=== PATIENT | male | born 1955 | race Caucasian/White ===

== ENCOUNTER 2019-04-03 09:21 | Outpatient (REF) | payer MEDICARE, SELFPAY ==
[2019-04-03 13:14] LABS: Anion Gap 10.4 mmol/L (3-11); BUN 26 mg/dL (7-18); CO2 26.6 mmol/L (21.0-32.0); CREATININE 0.92 mg/dL (0.70-1.30); Calcium 9.7 mg/dL (8.5-10.1); Chloride 104 mmol/L (98-107); Glucose 253 mg/dL (70-100); Potassium 4.5 mmol/L (3.5-5.1); Sodium 141 mmol/L (136-145)
== END 2019-04-03 09:41 ==
LOC: NCHCN 09:21
PROVIDERS: PCP Internal Medicine; Visit Provider Internal Medicine
DX: I10 Essential (primary) hypertension (principal)
CPT/HCPCS: 80048

== ENCOUNTER 2020-03-28 14:58 | Outpatient (REF) | payer MEDICARE, SELFPAY ==
[2020-03-28 21:19] LABS: Anion Gap 8.8 mmol/L (3-11); BUN 20 mg/dL (7-18); CO2 28.2 mmol/L (21.0-32.0); CREATININE 0.99 mg/dL (0.70-1.30); Calcium 9.8 mg/dL (8.5-10.1); Chloride 102 mmol/L (98-107); Glucose 190 mg/dL (74-106); Potassium 4.1 mmol/L (3.5-5.1); Sodium 139 mmol/L (136-145)
== END 2020-03-28 15:18 ==
LOC: NCHCN 14:58
PROVIDERS: PCP Internal Medicine; Visit Provider Internal Medicine
DX: E11.65 Type 2 diabetes mellitus with hyperglycemia (principal); I10 Essential (primary) hypertension
CPT/HCPCS: 80048

== ENCOUNTER 2020-09-29 20:59 | Outpatient (REF) | payer MEDICARE, SELFPAY ==
[2020-10-02 21:26] LABS: COVID-19 RT-PCR Result NEGATIVE (Negative)
== END 2020-09-29 21:19 ==
LOC: NCHCN 20:59
PROVIDERS: PCP Internal Medicine; Visit Provider Internal Medicine
DX: Z20.828 Contact with and (suspected) exposure to other viral communicable diseases (principal)
CPT/HCPCS: U0003

== ENCOUNTER 2021-04-21 11:23 | Outpatient (REF) | payer MEDICARE, SELFPAY ==
[2021-04-21 14:30] LABS: Anion Gap 12.2 mmol/L (3-11); BUN 16 mg/dL (7-18); CO2 24.8 mmol/L (21.0-32.0); CREATININE 0.9 mg/dL (0.70-1.30); Calcium 9.3 mg/dL (8.5-10.1); Chloride 105 mmol/L (98-107); Glucose 205 mg/dL (74-106); Potassium 4.3 mmol/L (3.5-5.1); Sodium 142 mmol/L (136-145)
== END 2021-04-21 11:24 | disposition home or self-care (01) ==
LOC: NCHCN 11:23
PROVIDERS: PCP Internal Medicine; Visit Provider Internal Medicine
DX: I10 Essential (primary) hypertension (principal)
CPT/HCPCS: 80048

== ENCOUNTER 2022-04-26 17:19 | Outpatient (REF) | payer MEDICARE, SELFPAY ==
[2022-04-26 15:01] LABS: Abs Immature Grans 0.08 10^3/uL (0.0-0.06); Absolute Basophil Count 0.04 10^3/uL (0.0-0.2); Absolute Eosinophil Count 0.27 10^3/uL (0.0-0.7); Absolute Monocyte Count 0.41 10^3/uL (0.1-0.8); Basophils % 0.6; Eosinophils % 4.2; HCT 47.5 % (40.0-50.0); HGB 15.4 g/dL (13.5-17.5); Immature Grans % 1.2; Lymphocytes % 35.4; MCH 29.9 pg (27.0-33.0); MCHC 32.4 % (32.0-36.0); MCV 92 fL (80-95); MPV 12.8 fL (8.0-11.0); Monocytes % 6.3; Neutrophils % 52.3; Platelet Count 181 10^3/uL (130-400); RBC 5.15 10^6/uL (4.36-5.78); RDW 13.2 % (11.8-14.1); RDW-SD 44.7 fL
[2022-04-26 15:25] LABS: ALT 56 U/L (16-63); AST 31 U/L (15-37); Albumin 4.2 g/dL (3.4-5.0); Alkaline Phosphatase 89 U/L (46-116); Anion Gap 10.9 mmol/L (3-11); BUN 21 mg/dL (7-18); Bilirubin, Total 0.6 mg/dL (0.2-1.0); CO2 29.1 mmol/L (21.0-32.0); CREATININE 0.9 mg/dL (0.70-1.30); Calcium 8.9 mg/dL (8.5-10.1); Chloride 101 mmol/L (98-107); Glucose 105 mg/dL (74-106); Potassium 4.1 mmol/L (3.5-5.1); Sodium 141 mmol/L (136-145); Total Protein 7.3 g/dL (6.4-8.2)
== END 2022-04-26 17:20 | disposition home or self-care (01) ==
LOC: NCHCN 17:19
PROVIDERS: PCP Internal Medicine; Visit Provider Family Medicine
DX: I10 Essential (primary) hypertension (principal); E11.65 Type 2 diabetes mellitus with hyperglycemia; L98.8 Other specified disorders of the skin and subcutaneous tissue
CPT/HCPCS: 80053; 85025

== ENCOUNTER 2023-05-26 11:16 | Outpatient (REF) | payer MEDICARE, SELFPAY ==
[2023-05-26 15:55] LABS: HGB 15.9 g/dL (13.5-17.5); MCH 30.2 pg (27.0-33.0); MCHC 33.8 % (32.0-36.0); MCV 89 fL (80-95); Platelet Count 183 10^3/uL (130-400); RBC 5.27 10^6/uL (4.36-5.78); RDW 13.2 % (11.8-14.1); RDW-SD 43.2 fL; WBC 5.91 10^3/uL (4.4-10.8)
[2023-05-26 17:12] LABS: ALT 48 U/L (16-63); AST 32 U/L (15-37); Albumin 4.2 g/dL (3.4-5.0); Alkaline Phosphatase 87 U/L (46-116); Anion Gap 12.4 mmol/L (3-11); BUN 19 mg/dL (7-18); Bilirubin, Total 0.5 mg/dL (0.2-1.0); CO2 24.6 mmol/L (21.0-32.0); CREATININE 0.8 mg/dL (0.70-1.30); Calcium 9.6 mg/dL (8.5-10.1); Chloride 102 mmol/L (98-107); Estimated GFR 98.21 (mL/min/1.73m2); Glucose 102 mg/dL (74-106); Potassium 3.9 mmol/L (3.5-5.1); Sodium 139 mmol/L (136-145); Total Protein 7.3 g/dL (6.4-8.2)
[2023-05-26 22:56] LABS: PSA, Screening 0.4 ng/mL (<=4.5)
== END 2023-05-26 11:17 | disposition home or self-care (01) ==
LOC: NCHCN 11:16
PROVIDERS: PCP Internal Medicine; Visit Provider Family Medicine
DX: E11.9 Type 2 diabetes mellitus without complications (principal); I10 Essential (primary) hypertension; E78.2 Mixed hyperlipidemia; Z12.5 Encounter for screening for malignant neoplasm of prostate
CPT/HCPCS: 80053; 84153; 85027

== ENCOUNTER 2023-11-22 11:39 | Outpatient (REF) | payer MEDICARE, SELFPAY ==
[2023-11-22 16:11] LABS: Hemoglobin A1C 7.5 % (<5.7)
== END 2023-11-22 11:40 | disposition home or self-care (01) ==
LOC: NCHCN 11:39
PROVIDERS: PCP Internal Medicine; Visit Provider Family Medicine
DX: E11.9 Type 2 diabetes mellitus without complications (principal)
CPT/HCPCS: 83036

== ENCOUNTER 2024-05-30 12:41 | Outpatient (REF) | payer MEDICARE, SELFPAY ==
--- OUTSIDE RECORDS SUMMARY | 2024-05-30 12:43 | XMS_ITS | Encounter Summary ---
Author Organization [facility] Address [address] [place] [address] Care Team Providers Care Chief Informatics Officer Name Role Phone Ralph Gonzalez MD Primary Care Provider [phone] Encounter Details Date Type Department Care Team (Late st Contact Info) Description 05/26/2023 Lab Requisition [facility] Pathology & Laboratory Medicine - [address] [phone] Outr Resulting Lab, Provider Social History Tobacco Use Types Packs/Day Years Used Date Smoking Tobacco: Never Assessed Sex and Gender Information Value Date Recorded Sex Assigned at Not on file Gender Identity Not on file Sexual Orientation Not on file documented as of this encounter Plan of Treatment Not on file documented as of this encounter Procedures Procedure Name Priority Date/Time Associated Diagnosis Comments PSA TOTAL, DIAGNOSTIC Routine 05/26/2023 10:30 EDT documented in this encounter Results * PSA TOTAL, DIAGNOSTIC (05/26/2023 10:30 EDT) PSA 0.4 <=4.5 ng/mL 05/26/2023 22:52 EDT [facility] Blood VENOUS BLOOD / Unknown 05/26/2023 10:30 EDT 05/26/2023 21:26 EDT Narrative [facility] - 05/26/2023 22:52 EDT NOTE: Serum PSA concentration should not be interpreted as absolute evidence for the presence or absence of malignant disease. Assayed on Siemens ADVIA Centaur XPT using chemiluminescent technology.??Values obtained by using different assay methods cannot be used interchangeably. Provider Outr Resulting Lab CHEMISTRY & BLOOD GAS ORDERABLES [facility] [address] [place] [address] documented in this encounter Visit Diagnoses Not on filedocumented in this encounter Care Teams Chief Informatics Officer Relationship Specialty Start Date End Date Ralph Gonzalez MD [address] [place], [place] [phone] PCP - General 08/23/15 documented as of this encounter
--- OUTSIDE RECORDS SUMMARY | 2024-05-30 12:43 | XMS_ITS | Encounter Summary ---
Author Organization [facility] Address [address] [place] [address] Care Team Providers Care Cold Rolling Machine Setter Name Role Phone Ralph Gonzalez MD Primary Care Provider Encounter Details Date Type Department Care Team (Latest Contact Info) Description 10/28/2015 10:34 EST - 10/28/2015 23:59 EST Hospital Encounter [facility] - [address] [address] Unknown, Provider, Discharge Disposition: Home or Self Care Social History Tobacco Use Types Packs/Day Years Used Date Smoking Tobacco: Never Assessed Sex and Gender Information Value Date Recorded Sex Assigned at Not on file Gender Identity Not on file Sexual Orientation Not on file documented as of this encounter Discharge Disposition Disposition Code Departure Means Destination Home or Self [facility] documented in this encounter Plan of Treatment Not on file documented as of this encounter Visit Diagnoses Not on filedocumented in this encounter Care Teams Cold Rolling Machine Setter Relationship Specialty Start Date End Date Ralph Gonzalez MD [address] [place] [address] PCP - General 08/23/15 documented as of this encounter
--- OUTSIDE RECORDS SUMMARY | 2024-05-30 12:43 | XMS_ITS | Encounter Summary ---
Author Organization [facility] Address [address] [place] [address] Care Team Providers Care Photocomposing Machine Operator Name Role Phone Ralph Gonzalez MD Primary Care Provider [phone] Encounter Details Date Type Department Care Team (Late st Contact Info) Description 10/28/2015 Results Only [facility] [phone] Devaughn Theodore, [address] [facility] [address] [place] [phone] Social History Tobacco Use Types Packs/Day Years Used Date Smoking Tobacco: Never Assessed Sex and Gender Information Value Date Recorded Sex Assigned at Not on file Gender Identity Not on file Sexual Orientation Not on file documented as of this encounter Plan of Treatment Not on file documented as of this encounter Procedures Procedure Name Priority Date/Time Associated Diagnosis Comments SURGICAL PATHOLOGY Routine 10/28/2015 10 :07 EST documented in this encounter Results * SURGICAL PATHOLOGY (10/28/2015 10:07 EST) Pathology Report: SURGICAL PATHOLOGY REPORT Reports generated via electronic interface contain original data; however they are lacking the format of the original report. Caution should be taken when reading/interpret ing unformatted reports. Name: ? WILLIE GILMAN ? Accession #: ? [id number] ? : ? 1955 (Age: 60) ??M ? Collect Date: ? 10/28/2015 ? Location: ? [facility] ? Receive Date: ? 10/29/2015 ? Provider: DVEAUGHN THEODORE DO Copy to: RALPH GONZALEZ MD ? Final Pathologic Diagnosis: A. COLON, ASCENDING, BIOPSY: - ??Colonic mucosa with no specific pathologic features. B. COLON, TRANSVERSE, BIOPSY: - ??Colonic mucosa with no specific pathologic features. C. COLON, SIGMOID, BIOPSY: - ??Colonic mucosa with no specific pathologic features. D. RECTUM, BIOPSY: - ??Colorectal mucosa with no specific pathologic features. Document reviewed and electronically signed by: SONALI ZUÑIGA MD Report ??Date: 10/31/2015 11:21 By the signature above, the attending physician certifies that he/she has personally conducted a gross and/or microscopic examination of the described specimens and rendered or confirmed the above diagnosis. Specimen(s) Received: A. ??Ascending colon bx B. ??Transverse colon bx C. ??Sigmoid colon bx D. ??Rectal bx Clinical History: Hx rectal cancer Gross Description: A. ?Received in formalin labelled with proper patient identification (initials L, N) and ascending colon bx are two pink-shaw tissues each measuring (0.4 x 0.3 x 0.2 cm). Entirely submitted in A1. B. ?Received in formalin labelled with proper patient identification (initials L, N) and transverse colon bx are two pink-shaw tissues (0.3 x 0.2 x 0.2 cm and 0.4 x 0.2 x 0.2 cm). Entirely submitted in B1. C. ?Received in formalin labelled with proper patient identification (initials L, N) and sigmoid colon bx are two pink-shaw tissues (0.2 x 0.2 x 0.2 cm and 0.5 x 0.3 x 0.2 cm). Entirely submitted in C1. D. ?Received in formalin labelled with proper patient identification (initials L, N) and rectal bx are two pink-shaw tissues (0.3 x 0.2 x 0.1 cm and 0.3 x 0.2 x 0.2 cm). Entirely submitted in D1. Cece Daley 10/29/2015 4:00 PM End of Report [facility] 10/28/2015 10:0 7 EST 10/29/2015 10:07 EST Devaughn Theodore DO PATHOLOGY ORDER DAVI [facility] [address] [place] [address] documented in this encounter Visit Diagnoses Not on filedocumented in this encounter Care Teams Photocomposing Machine Operator Relationship Specialty Start Date End Date Ralph Gonzalez MD [address] [place], [place] [phone] PCP - General 08/23/15 documented as of this encounter
--- OUTSIDE RECORDS SUMMARY | 2024-05-30 12:43 | XMS_ITS | Encounter Summary ---
Author Organization [facility] Address [address] [place] [address] Care Team Providers Care Automation Controls Expert Name Role Phone Ralph Gonzalez MD Primary Care Provider [phone] Encounter Details Date Type Department Care Team (Late st Contact Info) Description 09/30/2020 Lab Requisition [facility] Pathology & Laboratory Medicine - [address] [phone] Outr Resulting Lab, Provider Social History Tobacco [...] Procedure Name Priority Date/Time Associated Diagnosis Comments DO NOT ORDER STANDALONE - [facility] COVID TEST Today 09/29/2020 10:45 EST COVID-19 TESTING Routine 09/29/2020 10:4 5 EST documented in this encounter Results * DO NOT ORDER STANDALONE - [facility]OAD COVID TEST (09/29/2020 10:45 EST) COVID-19 rt-PCR Result NEGATIVE Negative 10/02/2020 19:09 EST [facility] Comment: 2019-novel Coronavirus (2019-nCoV) not detected by the qRT-PCR assay. Consider testing for other respiratory viruses or re-collecting for 2019-nCoV testing. Note: Optimum timing for peak viral levels during infections caused by 2019-nCoV have not been determined. Collection of multiple specimens from the same patient may be necessary to detect the virus. Limitations Positive results are indicative of active infection with SARS-CoV-2 but do not rule out bacterial infection or co-infection with other viruses. The agent detected may not be the definite cause of disease. In addition, detection of viral RNA may not indicate the presence of infectious virus or that SARS-CoV-2 is the causative agent for clinical symptoms. Negative results do not preclude SARS-CoV-2 infection and should not be used as the sole basis for patient management decisions. Negative results must be combined with clinical observations, patient history, and epidemiological information. False negative results may also occur if amplification inhibitors are present in the specimen or if inadequate numbers of organisms are present in the specimen. Optimum specimen types and timing for peak viral levels during infections caused by SARS-CoV-2 have not been fully determined. Collection of multiple specimens (types and time points) from the same patient may be necessary to detect the virus. The test was validated for use with upper respiratory specimens obtained via nasopharyngeal or oropharyngeal swabs in VTM, UTM, M4, M5, M6, saline, and MTM media. The performance of this test has not been established for other specimens. Specimens collected using other FDA recommended Specimen Collection Materials listed in the FDA COVID-19 [employer] communication (January 10, 2020) are processed with the caveat that they were not all validated for use with this test and the result must be interpreted in this context. Furthermore, a false negative results may occur if a specimen is improperly collected, transported or handled. If the virus mutates in the RT-PCR target region, SARS-CoV-2 may not be detected or may be detected less predictably. Inhibitors or other types of interference may produce a false negative result. An interference study evaluating the effect of common cold medications was not performed. This test is not FDA-cleared but its performance characteristics were established by our CLIA-certified, CAP-accredited, high complexity laboratory in accordance with CLIA regulations, [employer] (CAP) guidelines (Jan 03, 2020), and FDA guidance (Dec 15, 2019). This test is only for use under the Food and Drug Administration's Emergency Use Authorization. Swab ENTIRE NASOPHARYNX / Unknown 09/29/2020 10:45 EST 09/30/2020 16:15 EST Provider Outr Resulting Lab MICROBIOLOGY - GENERAL ORDERABLES [facility] [place] * COVID-19 TESTING (09/29/2020 10:45 EST) COVID-19 rt-PCR Result NEGATIVE Negative 10/02/2020 21:19 EST [facility] Comment: 2019-novel Coronavirus (2019-nCoV) not detected by the qRT-PCR assay. Consider testing for other respiratory viruses or re-collecting for 2019-nCoV testing. Note: Optimum timing for peak viral levels during infections caused by 2019-nCoV have not been determined. Collection of multiple specimens from the same patient may be necessary to detect the virus. Limitations Positive results are indicative of active infection with SARS-CoV-2 but do not rule out bacterial infection or co-infection with other viruses. The agent detected may not be the definite cause of disease. In addition, detection of viral RNA may not indicate the presence of infectious virus or that SARS-CoV-2 is the causative agent for clinical symptoms. Negative results do not preclude SARS-CoV-2 infection and should not be used as the sole basis for patient management decisions. Negative results must be combined with clinical observations, patient history, and epidemiological information. False negative results may also occur if amplification inhibitors are present in the specimen or if inadequate numbers of organisms are present in the specimen. Optimum specimen types and timing for peak viral levels during infections caused by SARS-CoV-2 have not been fully determined. Collection of multiple specimens (types and time points) from the same patient may be necessary to detect the virus. The test was validated for use with upper respiratory specimens obtained via nasopharyngeal or oropharyngeal swabs in VTM, UTM, M4, M5, M6, saline, and MTM media. The performance of this test has not been established for other specimens. Specimens collected using other FDA recommended Specimen Collection Materials listed in the FDA COVID-19 [employer] communication (January 10, 2020) are processed with the caveat that they were not all validated for use with this test and the result must be interpreted in this context. Furthermore, a false negative results may occur if a specimen is improperly collected, transported or handled. If the virus mutates in the RT-PCR target region, SARS-CoV-2 may not be detected or may be detected less predictably. Inhibitors or other types of interference may produce a false negative result. An interference study evaluating the effect of common cold medications was not performed. This test is not FDA-cleared but its performance characteristics were established by our CLIA-certified, CAP-accredited, high complexity laboratory in accordance with CLIA regulations, [employer] (CAP) guidelines (Jan 03, 2020), and FDA guidance (Dec 15, 2019). This test is only for use under the Food and Drug Administration's Emergency Use Authorization. Performing Lab [facility] 10/02/2020 21:[address] [facility] Swab 09/29/2020 10:4 5 EST 09/30/2020 16:15 EST Provider Outr Resulting Lab MICROBIOLOGY - GENERAL ORDERABLES [facility] [address] [place] [address] [facility] [place], [place] documented in this encounter Visit Diagnoses Not on filedocumented in this encounter Care Teams Automation Controls Expert Relationship Specialty Start Date End Date Ralph Gonzalez MD [address] [place] [address] PCP - General 08/23/15 documented as of this encounter
--- OUTSIDE RECORDS SUMMARY | 2024-05-30 12:43 | XMS_ITS | Clinical Summary ---
Author Organization [facility] Address [address] [place] [address] Care Team Providers Care Air Cargo Specialist Name Role Phone Ralph Gonzalez MD Primary Care Provider [phone] Social History Tobacco Use Types Packs/Day Years Used Date Smoking Tobacco: Never Assessed Sex and Gender Information Value Date Recorded Sex Assigned at Not on file Gender Identity Not on file Sexual Orientation Not on file Plan of Treatment Health Maintenance Due Date Last Done Comments Hepatitis C Screen 1955 RSV Immunization ( o r 60+ Years) (1 - 1-dose 60+ series) 2017 Fall Risk Screening 2022 COVID-19 Vaccine (2022- season) 2023 Care Teams Air Cargo Specialist Relationship Specialty Start Date End Date Ralph Gonzalez MD [address] [place] [address] PCP - General 08/23/15
--- OUTSIDE RECORDS SUMMARY | 2024-05-30 12:43 | XMS_ITS | Encounter Summary ---
Author Organization [facility] Address [address] [place] [address] Care Team Providers Care Software Test Specialist Name Role Phone Unavailable Primary Care Provider Unavailabl e Encounter Details Date Type Department Care Team (Late st Contact Info) Description 11/04/2006 Results Only [facility] [address] [place] [address] Devaughn Theodore, DO [address] [facility] [address] [place], [place] [id number] Social History Tobacco Use Types Packs/Day Years Used Date Smoking Tobacco: Never Assessed Sex and Gender Information Value Date Recorded Sex Assigned at Not on file Gender Identity Not on file Sexual Orientation Not on file documented as of this encounter Plan of Treatment Not on file documented as of this encounter Procedures Procedure Name Priority Date/Time Associated Diagnosis Comments SURGICAL PATHOLOGY Routine 11/04/2006 0:00 EST documented in this encounter Results * SURGICAL PATHOLOGY (11/04/2006 0:00 EST) Pathology Report: SURGICAL PATHOLOGY REPORT Reports generated via electronic interface contain original data; however they are lacking the format of the original report. Caution should be taken when reading/interpreting unformatted reports. Name: ? WILLIE GILMAN ? Accession #: ? [id number] ? : ? 1955 (Age: 51) ??M ? Collect Date: ? 11/04/2006 ? Location: ? [facility] ? Receive Date: ? 11/08/2006 ? Provider: DEVAUGHN THEODORE DO Copy to: NILA LEON MD ? Final Pathologic Diagnosis: A. ?Terminal ileum, biopsy: 1. ?Granulation tissue, acute and chronic inflammation, and inflammatory exudate, suggestive of ulcer/erosion. 2. ? Reactive epithelial changes. B. ?Cecum, biopsy: 1. ?Focal acute colitis. C. ?Colon, transverse, biopsy: 1. ?Mild acute colitis with reparative crypt epithelial changes. D. ?Colon, sigmoid, biopsy: 1. ?Focal acute colitis. E. ?Rectum, biopsy: 1. ?Mild acute proctitis with reactive/reparative and hyperplastic crypt epithelial changes. Comment: ? This case was presented at intradepartmental consultation conference. ??(Dr. Hernández)/katelyn Document reviewed and electronically signed by: Matthew Hernández MD Report ??Date: 11/10/2006 17:11 By the signature above, the attending physician certifies that he/she has personally conducted a gross and/or microscopic examination of the described specimens and rendered or confirmed the above diagnosis. Specimen(s) Received: A. ?Bx terminal ileum B. ? Cecum bx C. ? Bx transverse colon D. ? Bx sigmoid E. ? Bx rectum Clinical History: ? Abdominal pain, nausea, diarrhea, hx rectal ca, S/P radiation/chemo, inflamed terminal ileum Gross Description: ? Received in Hollande's fixative labelled Mukul and terminal ileum are four shaw-pink irregular soft tissue fragments ranging from 0.2 x 0.1 x 0.1 cm to 0.3 x 0.2 x 0.2 cm. ??The specimen is entirely submitted as (A1) and (A2). Received in Hollande's fixative labelled Mukul and bx cecum is a shaw-pink 0.3 x 0.2 x 0.2 cm soft tissue fragment. ??The specimen is entirely submitted as (B). Received in Hollande's fixative labelled Mukul and transverse colon bx is a shaw-pink 0.2 x 0.2 x 0.2 cm soft tissue fragment. ??The specimen is entirely submitted as (C). Received in Hollande's fixative labelled Mukul and bx sigmoid is a shaw-pink 0.3 x 0.2 x 0.2 cm soft tissue fragment. ??The specimen is entirely submitted as (D). Received in Hollande's fixative labelled Mukul and bx rectum is a shaw-pink 0.5 x 0.2 x 0.2 cm soft tissue fragment. ??The specimen is entirely submitted as (E). ??(Irena Rinocn)/[facility] End of Report [facility] 11/04/2006 11/08/2006 10: 29 EST Devaughn Theodore DO PATHOLOGY ORDER DAVI [facility] [address] [place] [address] documented in this encounter Visit Diagnoses Not on filedocumented in this encounter
--- OUTSIDE RECORDS SUMMARY | 2024-05-30 12:43 | XMS_ITS | Encounter Summary ---
Author Organization [facility] Address [address] [place] [address] Care Team Providers Care Ob/Gyn Physician Name Role Phone Unavailable Primary Care Provider Unavailabl e Encounter Details Date Type Department Care Team (Late st Contact Info) Description 08/09/2006 Results Only [facility] - Maple conversion [address] [place] [address] Isacc Theodore MD [address] [place] [address] Social History Tobacco Use Types Packs/Day Years Used Date Smoking Tobacco: Never Assessed Sex and Gender Information Value Date Recorded Sex Assigned at Not on file Gender Identity Not on file Sexual Orientation Not on file documented as of this encounter Plan of Treatment Not on file documented as of this encounter Procedures Procedure Name Priority Date/Time Associated Diagnosis Comments SURGICAL PATHOLOGY Routine 08/09/2006 0:00 EDT documented in this encounter Results * SURGICAL PATHOLOGY (08/09/2006 0:00 EDT) Pathology Report: SURGICAL PATHOLOGY REPORT Reports generated via electronic interface contain original data; however they are lacking the format of the original report. Caution should be taken when reading/interpreting unformatted reports. Name: ? WILLIE GILMAN ? Accession #: ? [id number] ? : ? 1955 (Age: 50) ??M ? Collect Date: ? 08/09/2006 ? Location: ? [facility] ? Receive Date: ? 08/09/2006 ? Provider: ISACC THEODORE MD Copy to: NILA LEON MD ? Final Pathologic Diagnosis: ? Rectum, biopsy: - Adenocarcinoma, invasive, well differentiated. ??See comment. Comment: ? This case was reviewed at intradepartmental consultation conference. ??(Dr. Shaw)/[facility] Document reviewed and electronically signed by: Cory Shaw MD Report ??Date: 08/11/2006 16:04 By the signature above, the attending physician certifies that he/she has personally conducted a gross and/or microscopic examination of the described specimens and rendered or confirmed the above diagnosis. Specimen(s) Received: ? Rectum 10 cm Clinical History: ? Rectal bleeding Gross Description: ? Received in Hollande' s fixative labelled Mukul and rectum 10 cm biopsy are five pieces of tissue which range from 0.5 x 0.1 x 0.1 cm to 0.2 x 0.1 x 0.1 cm. ??Three are submitted as (A1) and the remaining two as (A2). ??(Stella Lares/[facility] End of Report [facility] 08/09/2006 08/09/2006 15: 17 EDT Isacc Theodore MD PATHOLOGY ORDERABLE S [facility] [address] [place] [address] documented in this encounter Visit Diagnoses Not on filedocumented in this encounter
--- OUTSIDE RECORDS SUMMARY | 2024-05-30 12:43 | XMS_ITS | Referral Summary ---
Author Organization [facility] Address [address] [place] [address] Care Team Providers Care Cardiothoracic Anesthesia Technician Name Role Phone Ralph Gonzalez MD Primary Care Provider [phone] Social History Tobacco Use Types Packs/Day Years Used Date Smoking Tobacco: Never Assessed Sex and Gender Information Value Date Recorded Sex Assigned at Not on file Gender Identity Not on file Sexual Orientation Not on file Plan of Treatment Not on file Care Teams Cardiothoracic Anesthesia Technician Relationship Specialty Start Date End Date Ralph Gonzalez MD [address] [place] [address] PCP - General 08/23/15
--- OUTSIDE RECORDS SUMMARY | 2024-05-30 12:43 | XMS_ITS | Encounter Summary ---
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 Name Role Phone Unavailable Primary Care Provider Unavailabl e Encounter Details Date Type Department Care Team (Late st Contact Info) Description 12/22/2006 Results Only [facility] [address] [place] [address] Isacc Theodore MD [address] [place] [id number] Social History Tobacco Use Types Packs/Day Years Used Date Smoking Tobacco: Never Assessed Sex and Gender Information Value Date Recorded Sex Assigned at Not on file Gender Identity Not on file Sexual Orientation Not on file documented as of this encounter Plan of Treatment Not on file documented as of this encounter Procedures Procedure Name Priority Date/Time Associated Diagnosis Comments SURGICAL PATHOLOGY Routine 12/22/2006 0:00 EST documented in this encounter Results * SURGICAL PATHOLOGY (12/22/2006 0:00 EST) Pathology Report: SURGICAL PATHOLOGY REPORT Reports generated via electronic interface contain original data; however they are lacking the format of the original report. Caution should be taken when reading/interpreti ng unformatted reports. Name: ? WILLIE GILMAN ? Accession #: ? [id number] ? : ? 1955 (Age: 51) ??M ? Collect Date: ? 12/22/2006 ? Location: ? [facility] ? Receive Date: ? 12/23/2006 ? Provider: ISACC THEODORE MD Copy to: NILA LEON MD ? Final Pathologic Diagnosis: A. ?Colon, rectosigmoid, segmental resection: 1. ?Adenocarcinoma of the rectum. ? - Tumor is moderately differentiated, grade II. - Tumor invades through the muscularis propria into non-peritonealized perirectal ?tissue (AJCC:ypT3). ??See comment. ? - Blood vessel invasion is not identified. - Lymphatic invasion is not identified. - Proximal, distal, and radial resection margins are negative for tumor. - Distance of tumor from closest margin (distal) is 1.5 cm. - Radiation treatment effect is identified. - Regional lymph nodes: ??- One of twenty-eight lymph nodes positive for metastatic carcinoma (11/13) (AJCC:ypN1). ? B. ?? Colon, distal donut, excision: ?1. ?? Negative for tumor. ? C. ?? Colon, proximal donut, excision: ?1. ?? Negative for tumor. ?? Document reviewed and electronically signed by: Dali Royal MD Report ??Date: 12/28/2006 17:46 By the signature above, the attending physician certifies that he/she has personally conducted a gross and/or microscopic examination of the described specimens and rendered or confirmed the above diagnosis. Specimen(s) Received: A. ?Rectosigmoid Colon B. ? Distal donut margin C. ? Proximal donut margin Clinical History: ? Rectal cancer, S/P radiation therapy Gross Description: ? Received in formalin labelled as Mukul and 1 rectosigmoid colon is a partially opened segment of bowel with attached overlying adipose tissue. This specimen measures 16 cm in length with the proximal 3.0 cm unopened. The inner circumference varies from 4.0 cm at the proximal resection margin to 6.0 cm at the distal resection margin. The mucosa is shaw-pink with normal colonic folds and a minimal amount of brown fecal material. Approximately 1.5 cm from the distal resection margin there is a 1.2 x 0.5 cm area of puckering in the mucosa that is brown and granular. The wall averages 0.5 cm in thickness. Serial sectioning of the area of puckering reveals a firm, white-fibrotic mucosa on the underlying soft tissue. No distinct masses are noted. The serosa and attached fat are yellow-mcconnell and focally hyperemic. The serosal surface overlying the mucosal area of puckering also displays focal puckering of the fat. The proximal resection margins inked blue, the distal resection margin is inked black and the radial resection margin overlying the distal resection margin is inked blue. Red ink denotes contiguous surfaces. ??Television Schedule Coordinator sections are submitted as follows: BLOCK SEGURA A1 ? Proximal resection margin reverse en face A2, A3 ?Area of puckering to distal margin, bisected A4, A5 ?Area of puckering to distal margin, bisected A6, A7 ?Puckering to margin, bisected A8, A9 ?Puckering to margin, bisected A10, A11 ? Puckering to margin, bisected A12, A13 ? Puckering to margin, bisected A14 ?Uninvolved mucosa A15-A19 ? Intact possible nodes A20-A33 ? One possible node bisected in each cassette A34-A36 ? One node trisected in each cassette ? Received in formalin labelled as Mukul and 2 distal donut margin is a donut shaped fragment of colon which has an outer diameter of 1.5 cm and inner diameter of 0.5 cm and a thickness of 0.6 cm. The overlying mucosa is shaw-pink and there is an area of hyperemia. The portion of the specimen is received with jin. The remaining unstapled tissue is radially sectioned and submitted entirely as (B1) and (B2). Received in formalin labelled as Mukul and 3 prox donut margin is a donut shaped fragment of colonic tissue which measures 2.0 cm in outer diameter and 0.5 cm in inner diameter with a thickness of 0.6 cm. The mucosa is shaw-pink and hyperemic. The specimen is received with jin in a portion of the donut. A public health representative section of mucosa is submitted as (C). (Dr. Strong)/jbm ? End of Report DELON HARP 12/22/2006 12/23/2006 15: 16 EST Isacc Theodore MD PATHOLOGY ORDERABLE S Performing Organization Address City/State/[facility] Co de Phone Number DELON HARP [address] [place] [address] documented in this encounter Visit Diagnoses Not on filedocumented in this encounter
[2024-05-30 14:59] LABS: Abs Immature Grans 0.05 10^3/uL (0.0-0.06); Absolute Basophil Count 0.07 10^3/uL (0.0-0.2); Absolute Eosinophil Count 0.34 10^3/uL (0.0-0.7); Absolute Lymphocyte Count 2.14 10^3/uL (1.2-3.4); Absolute Monocyte Count 0.48 10^3/uL (0.1-0.8); Basophils % 1.1 %; Eosinophils % 5.2 %; HCT 48.6 % (40.0-50.0); HGB 15.9 g/dL (13.5-17.5); Immature Grans % 0.8 %; MCH 29.8 pg (27.0-33.0); MCHC 32.7 % (32.0-36.0); MCV 91 fL (80-95); Monocytes % 7.4 %; Neutrophils % 52.5 %; Platelet Count 167 10^3/uL (130-400); RBC 5.34 10^6/uL (4.36-5.78); RDW 13.3 % (11.8-14.1); RDW-SD 44.5 fL; WBC 6.48 10^3/uL (4.4-10.8)
[2024-05-30 15:33] LABS: LDL CHOLESTEROL 116 mg/dL (<100)
[2024-05-31 20:33] LABS: COMMENT (LAB VIEW ONLY) 54.87 mg/dL; Microalb ug/mg Crea 14.6 ug/mg Cr
== END 2024-05-30 12:42 | disposition home or self-care (01) ==
LOC: NCHCN 12:41
PROVIDERS: PCP Family Medicine; Visit Provider Family Medicine
DX: E11.9 Type 2 diabetes mellitus without complications (principal)
CPT/HCPCS: 83721; 82043; 82570; 85025

== ENCOUNTER 2025-06-10 18:20 | Outpatient (REF) | payer MEDICARE, SELFPAY ==
[2025-06-10 21:11] LABS: Abs Immature Grans 0.06 10^3/uL (0.0-0.06); HCT 46.2 % (40.0-50.0); HGB 15.3 g/dL (13.5-17.5); Immature Grans % 0.8 %; MCH 29.9 pg (27.0-33.0); MCHC 33.1 % (32.0-36.0); MCV 90 fL (80-95); RBC 5.11 10^6/uL (4.36-5.78); RDW 13.4 % (11.8-14.1); RDW-SD 44.3 fL; WBC 7.20 10^3/uL (4.4-10.8)
[2025-06-10 21:23] LABS: Platelet Count 177 10^3/uL (130-400)
[2025-06-10 21:24] LABS: RBC Morphology Normal
[2025-06-10 21:38] LABS: ALT 55 U/L (16-63); AST 29 U/L (15-37); Albumin 4.2 g/dL (3.4-5.0); Alkaline Phosphatase 101 U/L (46-116); Anion Gap 10.7 mmol/L (3-11); BUN 20 mg/dL (7-18); Bilirubin, Total 0.6 mg/dL (0.2-1.0); CO2 27.3 mmol/L (21.0-32.0); Calcium 9.4 mg/dL (8.5-10.1); Chloride 101 mmol/L (98-107); Estimated GFR 93.61 (mL/min/1.73m2); Glucose 140 mg/dL (74-106); LDL CHOLESTEROL 120 mg/dL (<100); Potassium 4.1 mmol/L (3.5-5.1); Sodium 139 mmol/L (136-145); Total Protein 7.4 g/dL (6.4-8.2)
[2025-06-10 22:00] LABS: COMMENT (LAB VIEW ONLY) 44.37 mg/dL; Microalb ug/mg Crea 70.8 ug/mg Cr
== END 2025-06-10 18:21 | disposition home or self-care (01) ==
LOC: NCHCN 18:20
PROVIDERS: PCP Family Medicine; Visit Provider Family Medicine
DX: E11.29 Type 2 diabetes mellitus with other diabetic kidney complication (principal); R80.9 Proteinuria, unspecified; I10 Essential (primary) hypertension; E78.2 Mixed hyperlipidemia
CPT/HCPCS: 80053; 83721; 82043; 82570; 85025